=== PATIENT | female | born 1950 | race Caucasian/White ===

== ENCOUNTER → 2021-10-05 | Outpatient (CLI) | payer OTHER ==
[~2021-10-05] MED LIST: CLOPIDOGREL75 MG PO; DULOXETINE HCL60 MG PO; IPRAT-ALBUT 0.5-3 ML INH; LOPRESSOR 25 MG25 MG PO; NORVASC 5 MG TAB5 MG PO; OXYCODON-ACETA1 EAC1 PO; PANTOPRAZOLE SO40 MG PO; PERCOCET 10-321 EACH PO; SPIRIVA HANDIH18 MCG INH; SYMBICORT 16010.2 GM INH; VITAMIN D325 MCG PO; ZOCOR 40 MG TAB40 MG PO
== END ==
LOC: KOH-I 09:00
DX: M19.011 Primary osteoarthritis, right shoulder (principal)
CPT/HCPCS: 73200

== ENCOUNTER → 2021-11-01 | Outpatient (CLI) | payer MEDICARE ==
[~2021-11-01] MED LIST changes: +COLACE100 MG PO; +LANSOPRAZOLE30 MG PO; -PERCOCET 10-321 EACH PO; +PERCOCET 7.5-31 EACH PO; +QUERCETIN; +RED YEAST RICE600 M1 PO; +VITAMIN C1000 MG PO
[2021-11-01 12:34] LABS: HEMOGLOBIN 15.6 gm/dl (12.3-15.3); RED BLOOD COUNT 5.29 M/UL (4.00-5.10); WHITE BLOOD COUNT 9.7 K/UL (4.5-11.0)
[2021-11-01 12:41] LABS: BUN/CREATININE RATIO 24 (0-10)
== END ==
LOC: OPSV2 10-31 12:00 → EDSTATUS 10:30
PROVIDERS: Orthopaedic Surgery
DX: Z01.818 Encounter for other preprocedural examination (principal); M19.011 Primary osteoarthritis, right shoulder; R91.8 Other nonspecific abnormal finding of lung field; R94.31 Abnormal electrocardiogram [ECG] [EKG]
CPT/HCPCS: 36415; 71046; 80048; 85025; 93005

== ENCOUNTER → 2022-02-23 | Outpatient (CLI) | payer MEDICARE | LOC: KOH-I 10:26 | DX: R60.0 Localized edema (principal); I70.202 Unspecified atherosclerosis of native arteries of extremities, left leg | CPT/HCPCS: 93926; 93971 ==